=== PATIENT | female | born 1985 | race Caucasian/White ===

== ENCOUNTER 2021-06-09 23:23 | Inpatient (IN) ==
[2021-06-10] MEDS ORDERED: LACTATED RINGER'S 1,000 ML IV PRN (00:26)
[2021-06-10] MEDS ORDERED: PENICILLIN G POTASSIUM 6 MU in DEXTROSE 5% 250 ML IV STA (00:26)
[2021-06-10] MEDS ORDERED: OXYTOCIN 30 UNITS/500 ML BAG IV PRN ×4 (00:26→16:20)
--- NOTE | 2021-06-10 00:37 | History & Physical Report ---
Date of Service June 10, 2021 Assessment & Plan (1) Elderly primigravida, antepartum: Plan: Admit to L&D. EFM/toco. Labs. COVID swab per protocol. Does not desire epidural. History of Present Illness Chief Complaint: rupture of membranes Primary Care Provider: Omega Nettles MD 36yo @ 39 2/7, gush of clear fluid at 10pm. +FM, no vaginal bleeding. Ctx every few minutes after ROM. complicated by: Rubella Non-Immune - Needs MMR post- AMA --wkly nsts at 36wks GBS carrier Allergies Allergy/AdvReac Type Severity Reaction Status Date / Time No Known Drug Allergies Allergy NKDA Verified 06/09/21 23:42 Home Medications Medication Instructions Recorded Confirmed Type prenat.vits,erlin,ckp-tkrb-twiuh 1 tab PO DAILY 09/27/20 06/09/21 History Patient History Medical History Migraine hx Surgical History History of colonoscopy S/P excision of ganglion cyst left wrist S/P LEEP S/P wisdom tooth extraction Family History Family/Other Breast cancer, Onset Age: 30 Family/Other Breast cancer, Onset Age: 70 Family/Other Uterine cancer Grandfather (Maternal) Prostate cancer Lung cancer Grandfather (Paternal) Myocardial infarction Father Colorectal cancer, Onset Age: 45 Other No family history of adverse response to anesthesia Denies family history of Ovarian cancer Stroke Social History (System 11/27/20 @ 08:55 by Neha Thomas) Smoking Status: Never smoker Second Hand Exposure: No; Hx Alcohol Use: Yes Alcohol type: wine Hx Substance Use: No Preferred Language: Portuguese Communication Ability: Effective Visual Impairment: No Limitations Hearing Ability: Normal Patent Examiner Required: No Beliefs That Will Affect Care: None marital status: marital status details: Roger (42) [phone] Current Living Situation: Spouse Current Living Situation Comment: Rodrigo current occupational status: employed current occupation: [employer] Feels Safe at Home: Yes Safety Concerns: Feels Safe At This Time Childhood Exposure to Second-Hand Smoke: No Assistive Devices: None Review of Systems All systems reviewed & are unremarkable except as noted in HPI & below Physical Exam Physical Exam: Cervix: 3/80/-1 Sterile spec: grossly ruptured. +pooling, +nitrizine. hair protruding from cervix. Constitutional: WD/WN, vitals as above Respiratory: normal respiratory effort, lungs clear to auscultation no respiratory distress Cardiovascular: Rate/Rhythm: regular rate and regular rhythm Gastrointestinal (Abdomen): Inspection/Auscultation: abdomen normal to inspection Percussion/Palpation: abdomen soft; abdomen nontender Gravid. No s/s chorio or abruption. Skin: no rashes, warm and dry Psychiatric: A+Ox3, euthymic affect Results & Data ([facility]) Vital Signs (Past 12 Hours) Vital Signs Temp Pulse Resp BP 06/09/21 23:42 36.8 C 18 06/09/21 23:40 36.8 C 67 18 112/59 L Monitoring External Monitor Cat 1 Tocodynamometer Q 3 Coding Level of Care Code None Diagnoses Elderly primigravida, antepartum O09.519
[2021-06-10 00:51] LABS: Hematocrit (blood only) 37.6 % (37-47); Hemoglobin 12.7 g/dL (12.0-16.0); Mean Corpuscular Hemoglobin 31.9 pg (25-34); Mean Corpuscular Hgb Conc 33.8 g/dL (32-36); Mean Corpuscular Volume 94.5 fL (80-100); Mean Platelet Volume 11.1 fL (7.4-10.4); Platelet Count 220 K/uL (130-400); RDW Coefficient of Variation 12.8 % (11.5-14.5); RDW Standard Deviation 44.3 fL (36.4-46.3); Red Blood Count 3.98 M/uL (4.2-5.4); White Blood Count 11.92 K/uL (4.8-10.8)
[2021-06-10] MEDS: PENICILLIN G POTASSIUM 3 MU in DEXTROSE 5% 100 ML IV PRN ×3 (04:38→13:06)
--- NOTE | 2021-06-10 07:24 | Labor Progress Brief Note ---
Date of Service June 10, 2021 Subjective Contractions are painful. FHT Cat 1 [place] Q 3-4 SVE 5/100/-1 Continue labor. Assessment & Plan Admission and Anticipated Discharge Date Admission Date: June 10, 2021 Results & Data ([facility]) Vital Signs (Past 12 Hours) Vital Signs Temp Pulse Resp BP 06/10/21 07:22 36.8 C 22 06/10/21 07:18 70 140/78 06/10/21 05:48 36.6 C 82 20 111/58 L 06/10/21 03:24 37.4 C 20 06/10/21 03:23 57 L 113/67 06/10/21 01:47 77 110/68 06/10/21 01:45 36.7 C 18 06/09/21 23:42 36.8 C 18 06/09/21 23:40 36.8 C 67 18 112/59 L Coding Level of Care Code None
[2021-06-10] MEDS ORDERED: ONDANSETRON INJ 2 MG/ML 2 ML VIAL IV PRN (09:40)
[2021-06-10] MEDS ORDERED: ONDANSETRON INJ 2 MG/ML 2 ML VIAL ONE (09:45)
[2021-06-10] MEDS ORDERED: LIDOCAINE 1% LOCAL 20 ML VIAL ONE (15:07)
--- NOTE | 2021-06-10 15:28 | Delivery Summary ---
Vaginal Delivery Summary Date of Service June 10, 2021 Vaginal Delivery Summary and 1st Degree LAC Vaginal Delivery Summary: Pre-delivery diagnoses: 36yo @ 39 2/7, spontaneous labor, GBS+, rubella non-immune Post-delivery diagnoses: same, 1st degree perineal laceration Procedure: spontaneous vaginal delivery, repair of 1st degree perineal laceration Surgeon: Dary Hernandez DO Complications: none Findings: Viable male . Apgars: 9/9. Weight pending, please see nursery records. Estimated blood loss: 300ml Description of delivery: The patient progressed to complete without anesthesia. She then began to push. She spontaneously vaginally delivered a viable from the cephalic presentation. The head delivered in FRANCISCO JAVIER position. The right (anterior) hand and arm delivered first, and anterior shoulder delivered, followed by the posterior shoulder, followed by the body. No nuchal cord. The baby was placed on mother's abdomen and a spontaneous cry was heard. Delayed cord clamping was employed, and the cord was doubly clamped and cut. Cord blood was obtained. The placenta was delivered spontaneously intact with a 3-vessel cord. The uterus and vagina were swept of clots and debris. IV pitocin was given. The uterus became firm. The cervix, vagina, and perineum were inspected and a first degree perineal laceration was noted. 1% lidocaine used for local anesthetic. The laceration was repaired with 3-0 vicryl in standard fashion. Excellent hemostasis was observed. The mother and baby are recovering in stable and good condition in the room. Sponge, needle and instrument counts were correct x 2. Dary Hernandez DO [facility] Vaginal Delivery Charge Vaginal Delivery Codes: 37971 global code for the antepartum, delivery, and post- Delivery Type Details: and 1st Degree LAC
[2021-06-10] MEDS ORDERED: BENZOCAINE 20% AER SPR 82.5 GM CAN EXT PRN (16:20)
[2021-06-10] MEDS ORDERED: DIPHTHERIA/TETANUS/PERTUSSIS 0.5 ML SYR/VIAL IM ONE (16:20)
[2021-06-10] MEDS ORDERED: SUPERCREAM 0.870% 15 GM JAR EXT PRN (16:20)
[2021-06-10] MEDS ORDERED: ACETAMINOPHEN 325 MG TAB PO PRN (16:20)
[2021-06-10] MEDS ORDERED: MEASLES, MUMPS & RUBELLA VIRUS VIAL SQ ONE (16:20)
[2021-06-10] MEDS ORDERED: oxyCODONE/ACETAMINOPHEN 5mg/325mg TAB PO PRN (16:20)
[2021-06-10] MEDS ORDERED: HYDROCORTISONE ACETATE 25 MG SUPP PR PRN (16:20)
[2021-06-10] MEDS: IBUPROFEN 600 MG TAB PO PRN ×2 (17:28→21:15)
[2021-06-10] MEDS: DOCUSATE SODIUM 100 MG CAP PO SCH (21:15)
[2021-06-11] MEDS: IBUPROFEN 600 MG TAB PO PRN ×4 (03:58→23:40)
--- NOTE | 2021-06-11 06:13 | Obstetrical Progress Note ---
Date of Service <Bebo Martinez DO - Last Filed: 06/11/21 07:48> June 11, 2021 Assessment & Plan <Bebo Martinez DO Last Filed: 06/11/21 07:48> (1) Encounter for care and examination after delivery: PPD1 - O+, GBS+, Rubella Non-immune. - Patient will need to get MMR vaccine before leaving. Patient agreeable to receiving. - Vitals WNL. - Hgb 11.5 this morning. - Encouraged . - Discussed discharge with patient. Patient willing to stay another night and leave tomorrow. <Dary Hernandez, - Last Filed: 06/14/21 08:26> (1) Encounter for care and examination after delivery: Subjective <Bebo Martinez DO Last Filed: 06/11/21 07:48> Ambulation: ambulating normally Voiding: no voiding problems Passing Gas:: Yes Diet Tolerance:: regular diet Lochia:: Small Feeding Type:: breast feeding Current Pain Level(1-10): 2 (At stitches. ) Review of Systems Denies fever, chills, sweats Denies shortness of breath, difficulty breathing, chest pain, palpitations, chest pressure. Denies breast pain. Denies dysuria. Denies headache or changes in vision Physical Exam <Bebo Martinez DO Last Filed: 06/11/21 07:48> General: Alert, oriented. No acute distress. Cardiac: Regular rate and rhythm, no murmurs/rubs/gallops. Respiratory: Clear to auscultation bilaterally a/p, no wheezes/rales/rhonchi. No increased work of breathing. Symmetrical chest rise. No respiratory distress. Abdomen: Soft, nontender, nondistended. Bowel sounds present. Uterus: Uterine fundus firm, palpable 2 cm below umbilicus. Lower Extremities: No lower extremity edema or swelling. No deep calf pain. Stevan's negative bilaterally Results & Data ([facility]) <Bebo Martinez DO Last Filed: 06/11/21 07:48> Vital Signs (Past 12 Hours) Vital Signs Temp Pulse Pulse Resp BP Pulse Ox 06/11/21 03:55 37.0 C 57 L 16 118/72 99 08/22/21 23:00 36.9 C 63 18 125/71 97 06/10/21 19:45 36.9 C 68 18 129/79 98 06/10/21 18:19 37.4 C 67 20 134/82 <Dary Hernandez DO - Last Filed: 06/14/21 08:26> Co-Signing Physician Notes Resident Physician Supervision Note: I was present with Dr. Martinez during the history and exam. I discussed the case with the resident and agree with the findings and plan as documented in the note. Any exceptions or clarifications are listed here: [None] Documented By: Dary Hernandez DO Resident Activity Tracking <Bebo Martinez DO - Last Filed: 06/11/21 07:48> Resident Involvement: Resident Care Provided Care Provided: OB Delivery
[2021-06-11 06:26] LABS: Hemoglobin 11.5 g/dL (12.0-16.0)
[2021-06-11] MEDS: DOCUSATE SODIUM 100 MG CAP PO SCH ×2 (08:11→19:49)
[2021-06-11] MEDS: PRENATAL VITAMIN 1 TAB PO SCH (08:11)
[2021-06-11] MEDS ORDERED: bisacodyL 5 MG TABEC PO SCH (20:00)
[2021-06-12] MEDS: IBUPROFEN 600 MG TAB PO PRN (04:53)
--- NOTE | 2021-06-12 05:42 | Obstetrical Progress Note ---
Date of Service <Bebo Martinez DO - Last Filed: 06/12/21 07:04> June 12, 2021 Assessment & Plan <Bebo Martinez DO - Last Filed: 06/12/21 07:04> (1) Encounter for care and examination after delivery: PPD1 - O+, GBS+, Rubella Non-immune. - Patient will need to get MMR vaccine before leaving. Patient agreeable to receiving. - Vitals WNL. - Hgb 11.5 yesterday morning. - Encouraged . - Discussed discharge and discharge instructions with patient. Patient will leave when ready. <Carmen Walsh MD - Last Filed: 06/12/21 07:37> (1) Encounter for care and examination after delivery: Subjective <Bebo Martinez DO - Last Filed: 06/12/21 07:04> Ambulation: ambulating normally Voiding: no voiding problems Passing Gas:: Yes Diet Tolerance:: regular diet Lochia:: Small Feeding Type:: breast feeding Current Pain Level(1-10): 2 (At stitches.) Review of Systems Denies fever, chills, sweats Denies shortness of breath, difficulty breathing, chest pain, palpitations, chest pressure. Denies breast pain. Denies dysuria. Denies headache or changes in vision Physical Exam <Bebo Martinez DO - Last Filed: 06/12/21 07:04> General: Alert, oriented. No acute distress. Cardiac: Regular rate and rhythm, no murmurs/rubs/gallops. Respiratory: Clear to auscultation bilaterally a/p, no wheezes/rales/rhonchi. No increased work of breathing. Symmetrical chest rise. No respiratory distress. Abdomen: Soft, nontender, nondistended. Bowel sounds present. Uterus: Uterine fundus firm, palpable 1 cm below umbilicus. Lower Extremities: No lower extremity edema or swelling. No deep calf pain. Stevan's negative bilaterally Results & Data ([facility]) <Bebo Martinez DO - Last Filed: 06/12/21 07:04> Vital Signs (Past 12 Hours) Vital Signs Temp Pulse Resp BP Pulse Ox 06/11/21 23:10 36.8 C 58 L 16 108/68 99 06/11/21 19:20 36.9 C 64 18 128/77 98 <Carmen Walsh MD - Last Filed: 06/12/21 07:37> Co-Signing Physician Notes Resident Physician Supervision Note: I interviewed and examined the patient. Discussed with Dr. Martinez and agree with findings and plan as documented in the note. Any exceptions or clarifications are listed here: PP2 s/p , doing well. VSS, exam benign and wnl. Meeting all pp milestones, stable for d/c home today. Will get MMR prior to d/c Documented By: Carmen Walsh MD Resident Activity Tracking <Bebo Martinez DO - Last Filed: 06/12/21 07:04> Resident Involvement: Resident Care Provided Care Provided: OB Delivery
[2021-06-12] MEDS ORDERED: bisacodyL 10 MG SUPP PR PRN (06:00)
[2021-06-12] MEDS ORDERED: MEASLES, MUMPS & RUBELLA VIRUS VIAL SQ ONE (07:37)
[2021-06-12] MEDS: DOCUSATE SODIUM 100 MG CAP PO SCH (08:35)
[2021-06-12] MEDS: PRENATAL VITAMIN 1 TAB PO SCH (08:35)
== END 2021-06-12 14:30 | disposition home or self-care (01) | DRG 807 ==
LOC: OPB 23:23 → 4S1 23:28 → 4S2 06-10 18:16
DX: Z3A.39 39 weeks gestation of pregnancy; Z22.330 Carrier of Group B streptococcus; Z37.0 Single live birth; O70.0 First degree perineal laceration during delivery